=== PATIENT | female | born 1955 | race Caucasian/White ===

== ENCOUNTER 2016-12-16 06:52 | Day surgery (SDC) | payer OTHER ==
[~2016-12-16] VITALS: Ht 167.6 cm; Wt 127.0 kg
[~2016-12-16 06:52] MED LIST: ALIGN4 MG PO; CIPRO250 MG PO; COZAAR100 MG PO; DILTIAZEM 24HR180 M3 PO; FLONASE ALLERG9.9 ML BOTH NARES; LEVO-T137 MCG PO; MOTRIN800 MG PO; PRILOSEC20 MG PO; TYLENOL EXTRA500 MG PO; VITAMIN D31000 UNIT PO; WOMEN MULTIVIT1 EACH PO
[2016-12-16 07:50] VITALS: BP 185/96
[2016-12-16 08:51] LABS: METH RESISTANT S AUREUS PCR NEGATIVE (NEGATIVE)
[2016-12-16 08:54] LABS: PROBE CHECK PASS; SPECIMEN PROCESSING CONTROL PASS
[2016-12-16] MEDS ORDERED: PERCOCET 5/31 TABLET PO (11:44)
[2016-12-16 13:15] VITALS: BP 124/70
[2016-12-16 14:15] VITALS: BP 139/81
[2016-12-16 16:00] VITALS: BP 151/81
== END 2016-12-16 16:12 | disposition home or self-care (01) ==
LOC: SDC 06:52
PROVIDERS: Surgery
PROC: 0WUF4JZ Supplement Abdominal Wall with Synthetic Substitute, Percutaneous Endoscopic Approach (ICD-10-PCS; principal; 2016-12-16)
DX: K43.0 Incisional hernia with obstruction, without gangrene (principal); K66.0 Peritoneal adhesions (postprocedural) (postinfection); E66.9 Obesity, unspecified; Z68.42 Body mass index [BMI] 45.0-49.9, adult; I10 Essential (primary) hypertension; R94.31 Abnormal electrocardiogram [ECG] [EKG]; K21.9 Gastro-esophageal reflux disease without esophagitis; M10.9 Gout, unspecified; E03.9 Hypothyroidism, unspecified; G62.9 Polyneuropathy, unspecified; Z79.899 Other long term (current) drug therapy
CPT/HCPCS: 87641; C1781; J0330; J0690; J1100; J2405; J2710; J3010; S0020

== ENCOUNTER → 2017-02-02 | Outpatient (CLI) | payer OTHER ==
[~2017-02-02] MED LIST changes: +PERCOCET 5/31 TABLET PO
== END | disposition home or self-care (01) ==
LOC: RAD 13:00
DX: K31.89 Other diseases of stomach and duodenum (principal); Z98.890 Other specified postprocedural states
CPT/HCPCS: 76705

== ENCOUNTER → 2017-10-06 | Outpatient (CLI) | payer OTHER | END | disposition home or self-care (01) | LOC: CDC 13:30 | DX: Z01.810 Encounter for preprocedural cardiovascular examination (principal); K43.9 Ventral hernia without obstruction or gangrene; R94.31 Abnormal electrocardiogram [ECG] [EKG] | CPT/HCPCS: 93000 ==

== ENCOUNTER 2017-10-27 08:13 | Day surgery (SDC) | payer OTHER ==
[~2017-10-27] VITALS: Ht 166.4 cm; Wt 122.5 kg
[2017-10-27 09:23] VITALS: BP 142/87
[2017-10-27] MEDS ORDERED: PERCOCET 5/31 TABLET PO (12:49)
[2017-10-27 14:52] VITALS: BP 113/58
[2017-10-27 15:45] VITALS: BP 110/67
[2017-10-27 17:15] VITALS: BP 120/66
== END 2017-10-27 17:10 | disposition home or self-care (01) ==
LOC: SDC 08:13
DX: K43.2 Incisional hernia without obstruction or gangrene (principal); D36.12 Benign neoplasm of peripheral nerves and autonomic nervous system, upper limb, including shoulder; I10 Essential (primary) hypertension; E66.01 Morbid (severe) obesity due to excess calories; Z68.41 Body mass index [BMI] 40.0-44.9, adult; E03.9 Hypothyroidism, unspecified; K21.9 Gastro-esophageal reflux disease without esophagitis; R94.31 Abnormal electrocardiogram [ECG] [EKG]
CPT/HCPCS: 88305; C1781; J0131; J0690; J1100; J1885; J2250; J2405; J2710; J3010